=== PATIENT | female | born 1950 | race Two or more races ===

== ENCOUNTER 2017-07-03 13:12 | Emergency (ER) | payer OTHER ==
[~2017-07-03] VITALS: Ht 162.6 cm; Wt 85.3 kg
[~2017-07-03 13:12] MED LIST: CLINDAMYCIN HC300 MG ORAL; IBUPROFEN600 MG ORAL; TYLENOL EXTRA500 MG ORAL
[2017-07-03] MEDS ORDERED: Morphine Sulfate 4mg/ml Inj IVP ONE ×2 (13:30→20:30)
--- NOTE | 2017-07-03 13:42 | Emergency Room Report ---
History of Present Illness General Chief Complaint: Back Pain-No Injury Source: Patient Present Illness HPI 67-year-old female, history of COPD, hypertension, bilateral knee surgery many years ago, multilevel severe degenerative disease of spine causing chronic back pain, p/w back pain for 7 days. Patient states pain started when he fell because he was weak in his knees. Pain is localized to bilateral lower back, sharp non radiating. Movement worsens pain. There are no alleviating factors. Patient has been taking oxycodone without relief Patient states that he went to [facility], had gotten multiple x-rays of his ankles knees and lumbar spine, no acute fracture seen of any extremities, lumbar spine showing chronic loss of vertebral height at T11 and T12. Patient got an MRI of his lumbar spine which was performed May 2018, showing moderate to severe multilevel degenerative changes of the thoracic and lumbar spine Patient states that the pain medication has still not been working, patient states that he is angry that he was discharged from [facility] one week ago, states that knees felt very weak and painful again caused him to fall and cause him to have more pain. Denies lower extremity weakness/numbness, no bowel/bladder retention or incontinence, saddle anesthesia. Denies fever, chills, abdominal pain, n/v, dysuria/hematuria. No history of IVDA Allergies: Uncoded Allergies: TAPE (Allergy, Unknown, 10/10/16) Patient History Past Medical History: see triage record Past Surgical History: none Pertinent Family History: none Reviewed Nursing Documentation: PMH: Agreed, PSxH: Agreed Nursing Documentation-PM Past Medical History: No History, Except For Hx Hypertension: Yes Hx Asthma: Yes Hx COPD: Yes Hx Neurological Problems: Yes - History of Back Problems Review of Systems All Other Systems: negative except mentioned in HPI Physical Exam Vital Signs Date Time Temp Pulse Resp B/P (MAP) Pulse Ox O2 Delivery O2 Flow Rate FiO2 07/03/17 13:04 98.2 70 18 142/96 98 Room Air Medical Decision Making Diagnostic Impression: Primary Impression: Intractable back pain ER Course 67-year-old female with chronic back pain presenting with back pain DDX: likely exacerbation of musculoskeletal back pain Serious diagnoses such as cord compression, epidural abscess is unlikely in this patient given the clinical scenario and abscess of neurological symptoms or findings. Patient appears nontoxic. Plan: Pain control basic labs Patient stating that opioid medications are not taking away pain at home, may likely be admitted for intractable pain ER course: Patient has been monitored during ED stay Disposition: Patient will be admitted to the hospital for intractable pain Signed out patient to Dr Alexander 67 yo F with chronic back pain p/w back pain already went to ED at [facility] 6 days ago, had multiple XRs performed no acute disease opioids not working at home -pending remaining labs -admit to med surg for intractable pain Please note that this Emergency Department Report was dictated using [employer] technologist technology software, occasionally this can lead to erroneous entry secondary to interpretation by the dictation equipment. EKG Diagnostic Results Rate: bradycardiac Rhythm: NSR ST Segments: other - Q waves I and aVL Rhythm Strip Diag. Results EP Interpretation: yes Rate: 99 Rhythm: NSR, no PVC's, no ectopy Last Vital Signs Date Time Temp Pulse Resp B/P (MAP) Pulse Ox O2 Delivery O2 Flow Rate FiO2 07/03/17 13:04 98.2 70 18 142/96 98 Room Air Disposition: ADMITTED INPATIENT Condition: Serious Melodie Tejeda M.D. Jul 03, 2017 13:42
[2017-07-03] MEDS ORDERED: BACLOFEN10 MG ORAL (14:35)
[2017-07-03] MEDS ORDERED: DIOVAN320 MG ORAL (14:35)
[2017-07-03] MEDS ORDERED: TRAMADOL HCL100 M2 ORAL (14:35)
[2017-07-03] MEDS ORDERED: LYRICA75 M1 ORAL (14:35)
[2017-07-03] MEDS ORDERED: CYMBALTA30 MG ORAL (14:35)
[2017-07-03 15:06] LABS: BASOPHILS % (AUTO) 0.6 % (0.0-2.0); EOSINOPHILS % (AUTO) 1.2 % (0.0-3.0); LYMPHOCYTES % (AUTO) 28.9 % (20.0-45.0); MEAN CORPUSCULAR HEMOGLOBIN 27.9 PG (27.0-31.0); MEAN CORPUSCULAR HGB CONC 30.6 G/DL (32.0-36.0); MEAN CORPUSCULAR VOLUME 91 FL (80-99); MEAN PLATELET VOLUME 6.4 FL (6.5-10.1); MONOCYTES % (AUTO) 5.2 % (1.0-10.0); NEUTROPHILS % (AUTO) 64.2 % (45.0-75.0); PLATELET COUNT 346 K/UL (150-450); RED BLOOD COUNT 4.52 M/UL (4.20-5.40); RED CELL DISTRIBUTION WIDTH 16.5 % (11.6-14.8); WHITE BLOOD COUNT 9.4 K/UL (4.8-10.8)
[2017-07-03 15:25] LABS: ALANINE AMINOTRANSFERASE 9 U/L (3-33); ALBUMIN/GLOBULIN RATIO 1.3 (1.0-2.7); ANION GAP 10 (5-15); ASPARTATE AMINO TRANSFERASE 13 U/L (5-40); CALCIUM 9.5 mg/dL (8.6-10.2); CARBON DIOXIDE 28 mEQ/L (20-30); CHLORIDE 104 mEQ/L (98-107); CREATININE 0.7 mg/dL (0.5-0.9); GLOMERULAR FILTRATION RATE > 60 mL/min (>60); HEMOLYSIS 7; POTASSIUM 3.9 mEQ/L (3.4-4.9); SODIUM 142 mEQ/L (135-145); TOTAL PROTEIN 7.2 g/dL (6.6-8.7)
[2017-07-03 15:31] VITALS: BP 157/72
[2017-07-03 15:55] LABS: APPEARANCE,URINE CLEAR; KETONES,URINE NEGATIVE (NEGATIVE); LEUKOCYTE ESTERASE ,URINE NEGATIVE (NEGATIVE); NITRITE,URINE NEGATIVE (NEGATIVE); PH,URINE 7 (4.5-8.0); PROTEIN,URINE NEGATIVE (NEGATIVE); UROBILINOGEN,URINE NORMAL MG/DL (0.0-1.0)
[2017-07-03 17:24] VITALS: BP 134/80
[2017-07-03 18:32] VITALS: BP 143/80
[2017-07-03 19:25] VITALS: BP 141/53
[2017-07-03 20:35] VITALS: BP 135/60
[2017-07-03 20:44] VITALS: BP 135/60
--- NOTE | 2017-07-04 19:04 | Cardiology Report ---
APPROVED REPORT EKG Measurement Heart [id number] Sinus bradycardia Moderate voltage criteria for LVH, may be normal variant Nonspecific T wave abnormality Abnormal ECG
== END 2017-07-03 20:44 | disposition short-term general hospital (02) ==
LOC: EDBD 13:12 → EMR 14:40
DX: M47.816 Spondylosis without myelopathy or radiculopathy, lumbar region (principal); M47.814 Spondylosis without myelopathy or radiculopathy, thoracic region; G89.29 Other chronic pain; I10 Essential (primary) hypertension; J44.9 Chronic obstructive pulmonary disease, unspecified
CPT/HCPCS: 36415; 80053; 81003; 85025; 93005; 99285; J2270

== ENCOUNTER 2020-01-31 12:49 | Emergency (ER) | payer MEDICARE, OTHER ==
[~2020-01-31] VITALS: Ht 162.6 cm; Wt 68.0 kg
[~2020-01-31 12:49] MED LIST changes: +BACLOFEN10 MG ORAL; +CYMBALTA30 MG ORAL; +DIOVAN320 MG ORAL; +LYRICA75 M1 ORAL; +TRAMADOL HCL100 M2 ORAL
[2020-01-31 13:00] VITALS: BP 150/86
[2020-01-31] MEDS ORDERED: HYDROcodone/Acetamin 5/325 tab ORAL ONE (13:00)
--- NOTE | 2020-01-31 14:22 | Emergency Room Report ---
History of Present Illness General Chief Complaint: Multiple Trauma/Fall Present Illness HPI 69-year-old female with history of chronic neck and back pain and multiple vertebral surgeries, here complaining of pain in the left shoulder after a fall that occurred 3 days ago. Denies any head injury or loss of consciousness. Patient was brought in by [employer]. Reports that she has oxycodone at home and is not helping her. Patient reports that no other medication helps. Patient also has rheumatoid arthritis specialist oxycodone. Patient had an active prescription for oxycodone at this time. Refuses to get Toradol, ibuprofen, lidocaine patch, and all other medication as they are not working. Also refuses to get [place]. Reports that she has pain trying to reach her primary care provider for the whole week to get an appointment with him to request home health however primary care has not responded. Dr. Salvador Fulton is patient' s primary care and I contacted him in the hospital today. He confirmed that patient can contact him and make an appointment. Home health will be provided through primary doctor. Patient appears to be loud and frustrated with staff. Reports that she just can go back home and deal with this anymore as she is significant and herself and she needs help. Patient understand that at this time she cannot be admitted to the hospital. Also asked if his primary care doctor can come and see her here however primary doctor decided to call her and make an appointment with her. Denies all other injuries, chest pain, shortness of breath, cough or congestion at this time. Allergies: Coded Allergies: ERYTHROMYCIN BASE (Verified Allergy, Intermediate, 01/31/20) Uncoded Allergies: TAPE (Allergy, Unknown, 10/10/16) COVID-19 Screening Contact w/high risk pt: No Recent Travel to affected area: No Experienced COVID-19 symptoms?: No Patient History Past Medical History: see triage record Past Surgical History: none Pertinent Family History: none Now: No Immunizations: UTD Reviewed Nursing Documentation: PMH: Agreed; PSxH: Agreed Nursing Documentation-PMH Hx Hypertension: Yes Hx Asthma: Yes Hx COPD: Yes Hx Neurological Problems: Yes - History of Back Problems Review of Systems All Other Systems: negative except mentioned in HPI Physical Exam Vital Signs Date Time Temp Pulse Resp B/P (MAP) Pulse Ox O2 Delivery O2 Flow Rate FiO2 01/31/20 12:46 99.0 78 18 152/80 (104 98 Room Air Sp02 EP Interpretation: reviewed, normal General Appearance: mild distress Head: normocephalic, atraumatic Eyes: bilateral eye normal inspection, bilateral eye PERRL ENT: hearing grossly normal, normal pharynx, no angioedema, normal voice Neck: full range of motion, supple/symm/no masses Respiratory: chest non-tender, lungs clear, normal breath sounds, speaking full sentences Cardiovascular #1: regular rate, rhythm, no edema Gastrointestinal: non tender, soft Genitourinary: no CVA tenderness Musculoskeletal: no lower extremity edema, non-tender Neurologic: alert, motor strength/tone normal, oriented x3, sensory intact, responsive, speech normal Psychiatric: judgement/insight normal, memory normal, mood/affect normal, no suicidal/homicidal ideation Skin: no rash Lymphatic: no adenopathy Medical Decision Making PA Attestation All my diagnosis and treatment plans were reviewed ad discussed with my supervising physician Dr. Tolbert Diagnostic Impression: Primary Impression: Shoulder contusion Additional Impressions: Arthritis Need for home health care ER Course 69-year-old female with history of chronic neck and back pain and multiple vertebral surgeries, here complaining of pain in the left shoulder after a fall that occurred 3 days ago. Denies any head injury or loss of consciousness. Patient was brought in by [employer]. Reports that she has oxycodone at home and is not helping her. Patient reports that no other medication helps. Patient also has rheumatoid arthritis specialist oxycodone. Patient had an active prescription for oxycodone at this time. Refuses to get Toradol, ibuprofen, lidocaine patch, and all other medication as they are not working. Also refuses to get [place]. Reports that she has pain trying to reach her primary care provider for the whole week to get an appointment with him to request home health however primary care has not responded. Dr. Salvador Fulton is patient' s primary care and I contacted him in the hospital today. He confirmed that patient can contact him and make an appointment. Home health will be provided through primary doctor. Patient appears to be loud and frustrated with staff. Reports that she just can go back home and deal with this anymore as she is significant and herself and she needs help. Patient understand that at this time she cannot be admitted to the hospital. Also asked if his primary care doctor can come and see her here however primary doctor decided to call her and make an appointment with her. Denies all other injuries, chest pain, shortness of breath, cough or congestion at this time. Ddx considered but are not limited to : Shoulder contusion, fracture, sprain, arthritic changes Vital signs: are WNL, pt. is afebrile H&PE are most consistent with: Shoulder contusion, chronic arthritis, need for home health care ORDERS: Left shoulder x-ray, chest x-ray, left humerus x-ray, ED INTERVENTIONS: Patient refused offered pain medication at this time DISCHARGE: At this time pt. is stable for d/c to home. Will provide printed patient care instructions, and any necessary prescriptions. Care plan and follow up instructions have been discussed with the patient prior to discharge. Patient follow-up primary doctor, take medication as been prescribed to her by her pain management doctor as directed, if worsening symptoms return to the emergency room Patient was evaluated in the context of the global COVID-19 pandemic, which necessitated consideration that the patient might be at risk for infection with the SARS-COV-2 virus that causes COVID-19. Institutional protocols and algorithms that pertain to the evaluation of patients at risk for COVID-19 are in a state of rapid change based on information relieved by multiple regulatory bodies including the CDC and the federal and state organizations. These policies and algorithms were followed during the patient's care in the ED. Chest X-Ray Diagnostic Results Chest X-Ray Diagnostic Results : Chest X-Ray Ordered: Yes # of Views/Limited/Complete: 1 View Indication: Other EP Interpretation: Yes PA Xray: Interpretation reviewed, by supervising MD, and agrees with findings. Interpretation: no consolidation, no effusion, no pneumothorax Impression: No acute disease Electronically Signed by: Otis Barlow PA-C Other X-Ray Diagnostic Results Other X-Ray Diagnostic Results #1: X-Ray ordered: Left shoulder # of Views/Limited Vs Complete: 3 View Indication: Pain EP Interpretation: Yes PA Xray: Interpretation reviewed, by supervising MD, and agrees with findings. Interpretation: no dislocation, no soft tissue swelling, no fractures Impression: No acute disease Electronically Signed by: Otis Barlow PA-C PA Scribe Text Severe arthritic changes noted Other X-Ray Diagnostic Results #2: X-Ray ordered: Left humerus # of Views/Limited Vs Complete: 3 View Indication: Pain EP Interpretation: Yes ZAHRA Xray: Interpretation reviewed, by supervising MD, and agrees with findings. Interpretation: no dislocation, no soft tissue swelling, no fractures Impression: No acute disease Electronically Signed by: Otis SWEENEY Scribe Text Severe arthritic changes noted Last Vital Signs Date Time Temp Pulse Resp B/P (MAP) Pulse Ox O2 Delivery O2 Flow Rate FiO2 01/31/20 13:00 85 19 Room Air 01/31/20 13:00 98.8 150/86 98 Disposition: HOME, SELF-CARE Condition: Stable Referrals: Salvador Gama MD (PCP) Patient Instructions: Arthritis, [id number] Additional Instructions: Follow-up with your primary care doctor pain management, I spoke to your primary doctor, Dr. Fulton and he will call you to make an appointment to follow-up with. Otis Tovar Jan 31, 2020 14:22
[2020-01-31 14:40] VITALS: BP 148/89
--- NOTE | 2020-01-31 14:59 | Diagnostic Imaging Report ---
Indication: Chest pain Technique: One view of the chest Comparison: none Findings: Lungs and pleural spaces are clear. The heart size is normal. The aorta is tortuous and ectatic. There is spinal fusion hardware in the lower cervical and upper thoracic spine. There are degenerative changes of the left shoulder Impression: No acute process
--- NOTE | 2020-01-31 15:00 | Diagnostic Imaging Report ---
Indication: Shoulder pain, status post fall Technique: 3 views of the left shoulder Comparison: none Findings: There are degenerative changes of the left glenohumeral joint, with loss of the joint space and proliferative changes. No definite acute fractures. No dislocations. Impression: Degenerative changes No acute bony trauma
--- NOTE | 2020-01-31 15:01 | Diagnostic Imaging Report ---
Indications: Left shoulder/arm pain, status post trauma Technique: Two views of the left humerus Comparison: None Findings: No acute fractures. No dislocations. No radiopaque foreign body. Impression: Negative
== END 2020-01-31 14:40 | disposition home or self-care (01) ==
LOC: EDBD 12:49 → EMR 13:19
DX: S40.012A Contusion of left shoulder, initial encounter (principal); R07.9 Chest pain, unspecified; Z98.1 Arthrodesis status; M06.9 Rheumatoid arthritis, unspecified; Z88.8 Allergy status to other drugs, medicaments and biological substances; I10 Essential (primary) hypertension; J44.9 Chronic obstructive pulmonary disease, unspecified; W19.XXXA Unspecified fall, initial encounter; Y92.9 Unspecified place or not applicable
CPT/HCPCS: 71045; 99284